=== PATIENT | female | born 1955 | race Caucasian/White ===

== ENCOUNTER 2016-10-04 15:57 | Emergency (ER) | payer MEDICARE ==
[~2016-10-04 15:57] MED LIST: MACROBID100 M1 PO; NO MEDICATIONS
== END 2016-10-04 16:47 | disposition home or self-care (01) ==
LOC: SED 15:57
DX: J06.9 Acute upper respiratory infection, unspecified (principal); J20.9 Acute bronchitis, unspecified; F17.210 Nicotine dependence, cigarettes, uncomplicated
CPT/HCPCS: 99283